=== PATIENT | female | born 1940 | race Caucasian/White ===

== ENCOUNTER 2021-03-18 13:25 | Emergency (ER) | payer OTHER ==
[2021-03-18 13:40] VITALS: BP 122/89; PULSE 59; TEMP 97.9; BMI 27.1
[2021-03-18] MEDS ORDERED: LIDOCAINE 5% TOPICAL PATCH TP ONE (14:24)
[2021-03-18] MEDS ORDERED: LIDOCAINE 5% TOPICAL PATCH ONE (14:29)
[2021-03-18] MEDS ORDERED: LIDOCAINE PATCH REMOVAL MC SCH (22:00)
== END 2021-03-18 15:45 | disposition home or self-care (01) ==
LOC: FER 13:25
DX: S22.42XA Multiple fractures of ribs, left side, initial encounter for closed fracture (principal)
CPT/HCPCS: 71250-TC; 99284-25

== ENCOUNTER 2022-07-01 15:49 | Emergency (ER) | payer OTHER ==
[2022-07-01 16:17] VITALS: BP 124/76; PULSE 55; RESP 19; TEMP 98.7; BMI 28.9
== END 2022-07-01 16:57 | disposition home or self-care (01) ==
LOC: FER 15:49
DX: M25.561 Pain in right knee (principal); W01.0XXA Fall on same level from slipping, tripping and stumbling without subsequent striking against object, initial encounter
CPT/HCPCS: 73562-TC-RT-FY; 73590-TC-RT-FY; 99284-25

== ENCOUNTER 2022-09-22 10:46 | Emergency (ER) | payer OTHER ==
[2022-09-22 11:20] VITALS: BP 129/50; PULSE 64; RESP 16; TEMP 97.6; BMI 27.4
== END 2022-09-22 15:21 | disposition home or self-care (01) ==
LOC: FER 10:46
DX: S09.90XA Unspecified injury of head, initial encounter (principal); S99.912A Unspecified injury of left ankle, initial encounter
CPT/HCPCS: 70450-TC; 72125-TC; 73562-TC-LT-FY; 73610-TC-LT-FY; 73630-TC-LT; 99284-25